=== PATIENT | female | born 1975 | race Caucasian/White ===

== ENCOUNTER 2016-07-16 14:12 | Emergency (ER) | payer OTHER ==
--- NOTE | 2016-07-16 14:43 | EDDOCDS ---
Nurse's Notes [facility] Name: Faviola Romano Age: 40 yrs Sex: Female : 1975 Arrival Date: 07/16/2016 Time: 14:12 Bed Triage 3 Private MD: NO PRIMARY PHYSICIAN, . Diagnosis: Constipation Presentation: 07/16 14:17 Presenting complaint: Patient states: Bilateral anterior chest wall pain intermittent mlb1 "for over a year" this episode began a few days ago. Risk factors: the patient reports no vaginal bleeding. Adult Sepsis Screening: The patient does not have new or worsening altered mentation. Patient's respiratory rate is less than 22. Systolic blood pressure is greater than 100. Patient has a qSOFA score of 0- Negative Sepsis Screen. Suicide/Homicide risk assessment- the patient denies having any suicidal and/or homicidal ideations and does not present with any other emotional, behavioral or mental health complaints. 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 Transition of care: patient was not received from another setting of care. 14:17 Acuity: NIYA Level 3 mlb1 14:17 Method Of Arrival: Walkin/Carried/Asstd mlb1 Triage Assessment: 14:19 General: Appears in no apparent distress, Behavior is appropriate for age, cooperative. mlb1 Pain: Location: left lateral anterior chest and right lateral anterior chest Pain currently is 6 out of 10 on a pain scale. Pt Declines HIV testing. 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 none - PMHx: none; - PSHx: ; - Social history: Smoking status: Patient uses tobacco products, light tobacco smoker. No barriers to communication noted, The patient speaks fluent Palestinian, Speaks appropriately for age. - Family history: Not pertinent. - : The pt / caregiver states he / she is not on anticoagulants. Home medication list is obtained from the patient. - Exposure Risk Screening:: None identified. Screenin:41 Screening information is obtained from the patient. Fall risk: No risks identified. mlb1 Assistance ADL's: requires no assistance with activities of daily living. Abuse/DV Screen: The patient / caregiver reports he/she is: not in a situation that causes fear, pain or injury. Nutritional screening: No deficits noted. Advance Directives: Currently, there is no health care proxy. home support is adequate. Assessment: 14:41 General: Appears in no apparent distress, Behavior is appropriate for age, cooperative. mlb1 Pain: Location: right lateral anterior chest and left lateral anterior chest Pain currently is 4 out of 10 on a pain scale. GI: Abdomen is non- distended Bowel sounds present X 4 quads. Abd is soft and non tender X 4 quads. Derm: No deficits noted. Vital Signs: 14:14 BP 126 / 60; Pulse 77; Resp 18 S; Temp 96.4(O); Pulse Ox 100% on R/A; Weight 94.35 kg gr2 (R); Height 5 ft. 8 in. (172.72 cm) (R); Pain 6/10; 14:14 Body Mass Index 31.63 (94.35 kg, 172.72 cm) gr2 Vitals: 14:14 Log In Time: July 16, 2016 at 14:14. gr2 ED Course: 14:14 Patient visited by Sylvain Gonzalez. gr2 14:14 NO PRIMARY PHYSICIAN, . is Private Physician. gr2 14:14 Patient moved to Waiting gr2 14:15 Patient visited by Sylvain Gonzalez. gr2 14:15 Patient moved to Pre RCE gr2 14:18 Triage Initiated mlb1 14:19 Patient visited by Ryne Mc RN. mlb1 14:19 Patient moved to Triage 3 mlb1 14:22 [facility] cc[facility] 14:22 Shama Graham MD is Attending Physician. cc10 14:23 Patient visited by Anthony Castaneda PA-C. cc10 14:23 Patient visited by Anthony Castaneda PA-C. cc10 14:28 [facility] is Referral Physician. cc10 14:41 No IV's were initiated during this patient's visit. No procedures done that require mlb1 assistance. 14:42 The patient / caregiver is instructed regarding the plan of care and ED course. mlb1 Order Results: There are currently no results for this order. Outcome: 14:29 Discharge ordered by Provider. cc10 14:41 Discharge Assessment: Patient awake, alert and oriented x 3. No cognitive and/or mlb1 functional deficits noted. Patient verbalized understanding of disposition instructions. patient administered narcotics - no. The following High Risk Discharge criteria are identified: None. Discharged to home ambulatory. Condition: good. Discharge instructions given to patient, Instructed on discharge instructions, follow up and referral plans. medication usage, Demonstrated understanding of instructions, medications, Pt was receptive of discharge instructions/ teaching. Prescriptions given X 1. No special radiology studies were completed. Property sent home with patient. 14:42 Patient left the ED. mlb1 Signatures: Ryne Mc RN RN mlb1 Sylvain Gonzalez gr2 Anthony Castaneda PA-C PA-C cc10 MTDD
--- NOTE | 2016-07-16 14:43 | EDDOCDS ---
Physician Documentation [facility] Name: Faviola Romano Age: 40 yrs Sex: Female : 1975 Arrival Date: 07/16/2016 Time: 14:12 Bed Triage 3 Private MD: NO PRIMARY PHYSICIAN, . Disposition: 07/16/16 14:29 Discharged to Home/Self Care. Impression: Constipation. - Condition is Stable. - Discharge Instructions: Constipation, Adult. - Prescriptions for Magnesium Citrate Oral Solution - take 1 bottle by ORAL route once daily; 1 bottle. - Medication Reconciliation form. - [facility]: [facility]; When: Call to arrange an appointment; Reason: To establish care. - Problem is chronic. - Symptoms are unchanged. Historical: - Allergies: SULFA (SULFONAMIDES) (Anaphylaxis); - Home Meds: 1. none - PMHx: none; - PSHx: ; - Social history: Smoking status: Patient uses tobacco products, light tobacco smoker. No barriers to communication noted, The patient speaks fluent Icelandic, Speaks appropriately for age. - Family history: Not pertinent. - : The pt / caregiver states he / she is not on anticoagulants. Home medication list is obtained from the patient. - Exposure Risk Screening:: None identified. 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 8 in. (172.72 cm) (R); Pain 6/10; 14:14 Body Mass Index 31.63 (94.35 kg, 172.72 cm) gr2 Signatures: Ryne Mc RN RN mlb1 Anthony Castaneda PA-C PAFahadC cc10 MTDD
--- NOTE | 2016-07-18 15:43 | EDDOCDS ---
Nurse's Notes [facility] Name: Faviola Romano Age: 40 yrs Sex: Female : 1975 Arrival Date: 07/16/2016 Time: 14:12 Bed Triage 3 Private MD: NO PRIMARY PHYSICIAN, . Diagnosis: Constipation Presentation: 07/16 14:17 Presenting complaint: Patient states: Bilateral anterior chest wall pain intermittent mlb1 "for over a year" this episode began a few days ago. Risk factors: the patient reports no vaginal bleeding. Adult Sepsis Screening: The patient does not have new or worsening altered mentation. Patient's respiratory rate is less than 22. Systolic blood pressure is greater than 100. Patient has a qSOFA score of 0- Negative Sepsis Screen. Suicide/Homicide risk assessment- the patient denies having any suicidal and/or homicidal ideations and does not present with any other emotional, behavioral or mental health complaints. Status: Patient is not a service dismantler or dependent. Transition of care: patient was not received from another setting of care. 14:17 Acuity: NIYA Level 3 mlb1 14:17 Method Of Arrival: Walkin/Carried/Asstd mlb1 Triage Assessment: 14:19 General: Appears in no apparent distress, Behavior is appropriate for age, cooperative. mlb1 Pain: Location: left lateral anterior chest and right lateral anterior chest Pain currently is 6 out of 10 on a pain scale. Pt Declines HIV testing. 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 none - PMHx: none; - PSHx: ; - Social history: Smoking status: Patient uses tobacco products, light tobacco smoker. No barriers to communication noted, The patient speaks fluent Costa Rican, Speaks appropriately for age. - Family history: Not pertinent. - : The pt / caregiver states he / she is not on anticoagulants. Home medication list is obtained from the patient. - Exposure Risk Screening:: None identified. Screenin:41 Screening information is obtained from the patient. Fall risk: No risks identified. mlb1 Assistance ADL's: requires no assistance with activities of daily living. Abuse/DV Screen: The patient / caregiver reports he/she is: not in a situation that causes fear, pain or injury. Nutritional screening: No deficits noted. Advance Directives: Currently, there is no health care proxy. home support is adequate. Assessment: 14:41 General: Appears in no apparent distress, Behavior is appropriate for age, cooperative. mlb1 Pain: Location: right lateral anterior chest and left lateral anterior chest Pain currently is 4 out of 10 on a pain scale. GI: Abdomen is non- distended Bowel sounds present X 4 quads. Abd is soft and non tender X 4 quads. Derm: No deficits noted. Vital Signs: 14:14 BP 126 / 60; Pulse 77; Resp 18 S; Temp 96.4(O); Pulse Ox 100% on R/A; Weight 94.35 kg gr2 (R); Height 5 ft. 8 in. (172.72 cm) (R); Pain 6/10; 14:14 Body Mass Index 31.63 (94.35 kg, 172.72 cm) gr2 Vitals: 14:14 Log In Time: July 16, 2016 at 14:14. gr2 ED Course: 14:14 Patient visited by Sylvain Gonzalez. gr2 14:14 NO PRIMARY PHYSICIAN, . is Private Physician. gr2 14:14 Patient moved to Waiting gr2 14:15 Patient visited by Sylvain Gonzalez. gr2 14:15 Patient moved to Pre RCE gr2 14:18 Triage Initiated mlb1 14:19 Patient visited by Ryne Mc RN. mlb1 14:19 Patient moved to Triage 3 mlb1 14:22 [facility] cc10 14:22 Shama Graham MD is Attending Physician. cc10 14:23 Patient visited by Anthony Castaneda PA-C. cc10 14:23 Patient visited by Anthony Castaneda PA-C. cc10 14:28 [facility] is Referral Physician. cc10 14:41 No IV's were initiated during this patient's visit. No procedures done that require mlb1 assistance. 14:42 The patient / caregiver is instructed regarding the plan of care and ED course. mlb1 15:24 [facility] Payment Agreement was scanned into [employer] and attached to record. jp5 07/17 11:15 T-Sheet-- Draft Copy was scanned into [employer] and attached to record. gb Order Results: There are currently no results for this order. Outcome: 07/16 14:29 Discharge ordered by Provider. cc10 14:41 Discharge Assessment: Patient awake, alert and oriented x 3. No cognitive and/or mlb1 functional deficits noted. Patient verbalized understanding of disposition instructions. patient administered narcotics - no. The following High Risk Discharge criteria are identified: None. Discharged to home ambulatory. Condition: good. Discharge instructions given to patient, Instructed on discharge instructions, follow up and referral plans. medication usage, Demonstrated understanding of instructions, medications, Pt was receptive of discharge instructions/ teaching. Prescriptions given X 1. No special radiology studies were completed. Property sent home with patient. 14:42 Patient left the ED. mlb1 Signatures: Adina Agee, Reg Reg Ryne Schneider RN RN mlb1 Sylvain Gonzalez gr2 Anthony Castaneda PA-C PALavonne cc10 Brody Lawrence jp5 Chart Complete MTDD
--- NOTE | 2016-07-18 15:43 | EDDOCDS ---
Physician Documentation [facility] Name: Faviola Romano Age: 40 yrs Sex: Female : 1975 Arrival Date: 07/16/2016 Time: 14:12 Bed Triage 3 Private MD: NO PRIMARY PHYSICIAN, . Disposition: 07/16/16 14:29 Discharged to Home/Self Care. Impression: Constipation. - Condition is Stable. - Discharge Instructions: Constipation, Adult. - Prescriptions for Magnesium Citrate Oral Solution - take 1 bottle by ORAL route once daily; 1 bottle. - Medication Reconciliation form. - Follow up: [facility]; When: Call to arrange an appointment; Reason: To establish care. - Problem is chronic. - Symptoms are unchanged. Historical: - Allergies: SULFA (SULFONAMIDES) (Anaphylaxis); - Home Meds: 1. none - PMHx: none; - PSHx: ; - Social history: Smoking status: Patient uses tobacco products, light tobacco smoker. No barriers to communication noted, The patient speaks fluent Persian, Speaks appropriately for age. - Family history: Not pertinent. - : The pt / caregiver states he / she is not on anticoagulants. Home medication list is obtained from the patient. - Exposure Risk Screening:: None identified. 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 8 in. (172.72 cm) (R); Pain 6/10; 14:14 Body Mass Index 31.63 (94.35 kg, 172.72 cm) gr2 MDM: 15:24 [facility] Payment Agreement was scanned into [employer] and attached to record. jp5 15:24 Financial registration complete. jp5 07/17 11:15 T-Sheet-- Draft Copy was scanned into [employer] and attached to record. gb Signatures: Adina Agee, Reg Reg gb Ryne Mc RN RN mlb1 Anthony Castaneda, PA-C PA-C cc10 Brody Lawrence 5 The chart was reviewed and I authenticate all verbal orders and agree with the evaluation and treatment provided.Attachments: 07/16 15:24 [facility] Payment Agreement jp5 07/17 11:15 T-Sheet-- Draft Copy gb Chart Complete MTDD
--- NOTE | 2016-07-18 15:43 | EDDOCDS ---
Physician Documentation [facility] Name: Faviola Romano Age: 40 yrs Sex: Female : 1975 Arrival Date: 07/16/2016 Time: 14:12 Bed Triage 3 Private MD: NO PRIMARY PHYSICIAN, . Disposition: 07/16/16 14:29 Discharged to Home/Self Care. Impression: Constipation. - Condition is Stable. - Discharge Instructions: Constipation, Adult. - Prescriptions for Magnesium Citrate Oral Solution - take 1 bottle by ORAL route once daily; 1 bottle. - Medication Reconciliation form. - Follow up: [facility]; When: Call to arrange an appointment; Reason: To establish care. - Problem is chronic. - Symptoms are unchanged. Historical: - Allergies: SULFA (SULFONAMIDES) (Anaphylaxis); - Home Meds: 1. none - PMHx: none; - PSHx: ; - Social history: Smoking status: Patient uses tobacco products, light tobacco smoker. No barriers to communication noted, The patient speaks fluent Setswana, Speaks appropriately for age. - Family history: Not pertinent. - : The pt / caregiver states he / she is not on anticoagulants. Home medication list is obtained from the patient. - Exposure Risk Screening:: None identified. 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 8 in. (172.72 cm) (R); Pain 6/10; 14:14 Body Mass Index 31.63 (94.35 kg, 172.72 cm) gr2 MDM: 15:24 [facility] Payment Agreement was scanned into [employer] and attached to record. jp5 15:24 Financial registration complete. jp5 07/17 11:15 T-Sheet-- Draft Copy was scanned into [employer] and attached to record. gb Signatures: Adina Agee, Reg Reg gb Ryne Mc RN RN mlb1 Anthony Castaneda, PA-C PA-C cc10 Brody Lawrence 5 The chart was reviewed and I authenticate all verbal orders and agree with the evaluation and treatment provided.Attachments: 07/16 15:24 [email or web address] Payment Agreement jp5 07/17 11:15 T-Sheet-- Draft Copy gb Chart Complete MTDD
== END 2016-07-16 14:42 | disposition home or self-care (01) ==
LOC: M ED 14:12
DX: K59.00 Constipation, unspecified (principal); F17.210 Nicotine dependence, cigarettes, uncomplicated; Z88.2 Allergy status to sulfonamides

== ENCOUNTER 2018-11-29 10:59 | Emergency (ER) | payer OTHER ==
[~2018-11-29] VITALS: Ht 172.7 cm; Wt 77.6 kg
[2018-11-29 12:01] LABS: BASO # 0.1 10^3/uL (0.0-0.2); BASO % 0.8 % (0.0-1.0); EOS # 0.1 10^3/uL (0.0-0.50); EOS % 1.3 % (0.0-3.0); HEMATOCRIT 34.8 % (36.0-47.0); HEMOGLOBIN 10.1 g/dl (12.0-15.5); LYMPH # 1.6 10^3/uL (1.5-4.5); LYMPH % 20.6 % (24.0-44.0); MEAN CORPUSCULAR HEMOGLOBIN 22.9 pg (27.0-33.0); MEAN CORPUSCULAR VOLUME 78.9 fl (80.0-96.0); MONO # 0.6 10^3/uL (0.0-0.8); MONO % 7.1 % (0.0-5.0); NEUTROPHILS # 5.5 10^3/uL (1.8-7.7); NEUTROPHILS % 69.8 % (36.0-66.0); PLATELET COUNT, AUTOMATED 311 10^3/uL (150-450); RED BLOOD COUNT 4.41 10^6/uL (4.00-5.40); WHITE BLOOD COUNT 7.8 10^3/uL (4.0-10.0)
[2018-11-29] MEDS ORDERED: NS 1,000 ML IV ONE (12:15)
[2018-11-29] MEDS ORDERED: KETOROLAC 30 MG/ML VIAL (J1885) IV ONE (12:15)
[2018-11-29] MEDS ORDERED: PANTOPRAZOLE 40MG INJ (PROTONIX) (C9113) IV ONE (12:15)
[2018-11-29] MEDS ORDERED: ONDANSETRON 4MG/2ML VIAL (J2405) IV ONE (12:15)
[2018-11-29] MEDS ORDERED: GASTROGRAFIN SOLUTION 30ML (Q9963) As Ordered ONE (12:31)
[2018-11-29 12:43] LABS: ALBUMIN 3.8 GM/DL (3.2-5.2); ALT/SGPT 22 U/L (12-78); AMYLASE 70 U/L (25-115); BILIRUBIN,DIRECT 0.1 MG/DL (0.0-0.2); BILIRUBIN,TOTAL 0.5 MG/DL (0.2-1.0); BLOOD UREA NITROGEN 14 MG/DL (7-18); CARBON DIOXIDE LEVEL 24 MEQ/L (21-32); CHLORIDE LEVEL 110 MEQ/L (98-107); CREATININE FOR GFR 0.76 MG/DL (0.55-1.30); GLOMERULAR FILTRATION RATE > 60.0 (>58); GLUCOSE, FASTING 80 MG/DL (70-100); LIPASE 139 U/L (73-393); POTASSIUM SERUM 4.7 MEQ/L (3.5-5.1); SODIUM LEVEL 140 MEQ/L (136-145)
[2018-11-29] MEDS: GASTROGRAFIN SOLUTION 30ML PO SCH ×2 (12:57→13:45)
[2018-11-29 13:02] LABS: INR 0.94; PROTHROMBIN TIME 12.7 SECONDS (12.1-14.4)
[2018-11-29] MEDS ORDERED: ISOVUE-370 76% 100ML VIAL (Q9967) As Ordered ONE (14:36)
--- NOTE | 2018-11-29 15:44 | REP ---
CT ABDOMEN AND PELVIS WITH IV AND ORAL CONTRAST: TECHNIQUE: Axial contrast enhanced images from the lung bases to the pubic symphysis using 100 mL Isovue 370 intravenous contrast material with multiplanar reformations. Visualized lung bases are clear. The liver, spleen, adrenals, pancreas and kidneys are unremarkable. There is no hydronephrosis bilaterally. There is no abdominal aortic aneurysm. There is no adenopathy. There is no free air. No bowel wall thickening is seen. The appendix is normal. Left ovarian cyst is seen measuring 4.2 cm in diameter. There is trace free fluid in the cul-de-sac. IUD is seen located in the cervix. Urinary bladder is not optimally distended and not optimally evaluated. IMPRESSION: Left ovarian cyst 4.2 cm in diameter. Trace free fluid in the pelvis. IUD is seen in the cervix. Appendix is normal. No free air. Electronically Signed by Rojas Wallis MD 12/01/2018 08:40 A
[2018-11-29] MEDS ORDERED: FAMO20TA PO (15:58)
[2018-11-29] MEDS ORDERED: NORC1TAB7 PO (15:58)
[2018-11-29] MEDS ORDERED: ZOFR4TAB16 PO (15:58)
[2018-11-29 16:28] VITALS: BP 109/57
== END 2018-11-29 16:36 | disposition home or self-care (01) ==
LOC: M ED 10:59
DX: N83.201 Unspecified ovarian cyst, right side (principal); F17.200 Nicotine dependence, unspecified, uncomplicated; Z88.2 Allergy status to sulfonamides
CPT/HCPCS: 74177; 80048; 80076; 82150; 83690; 85025; 85610; 96361; 96374; 96375; 99284; C9113; J1885; J2405; Q9967

== ENCOUNTER 2018-12-06 17:16 | Emergency (ER) | payer OTHER ==
[~2018-12-06] VITALS: Ht 172.7 cm; Wt 83.2 kg
[~2018-12-06 17:16] MED LIST: FAMO20TA PO; NORC1TAB7 PO; ZOFR4TAB16 PO
[2018-12-06] MEDS ORDERED: ACET160S3 PO (17:23)
[2018-12-06] MEDS ORDERED: NS 1,000 ML IV ONE (18:30)
[2018-12-06 18:50] LABS: BASO # 0.1 10^3/uL (0.0-0.2); BASO % 0.7 % (0.0-1.0); EOS # 0.1 10^3/uL (0.0-0.50); EOS % 0.9 % (0.0-3.0); HEMATOCRIT 32.2 % (36.0-47.0); HEMOGLOBIN 9.4 g/dl (12.0-15.5); LYMPH # 1.8 10^3/uL (1.5-4.5); LYMPH % 24.2 % (24.0-44.0); MEAN CORPUSCULAR HGB CONC 29.2 g/dl (32.0-36.5); MEAN CORPUSCULAR VOLUME 78.9 fl (80.0-96.0); MONO # 0.5 10^3/uL (0.0-0.8); MONO % 6.8 % (0.0-5.0); NEUTROPHILS # 5.1 10^3/uL (1.8-7.7); NEUTROPHILS % 67.1 % (36.0-66.0); PLATELET COUNT, AUTOMATED 290 10^3/uL (150-450); RED BLOOD COUNT 4.08 10^6/uL (4.00-5.40); WHITE BLOOD COUNT 7.5 10^3/uL (4.0-10.0)
[2018-12-06 19:17] LABS: HCG, SERUM QUALITATIVE NEGATIVE (NEGATIVE)
[2018-12-06 19:18] LABS: ALBUMIN 3.7 GM/DL (3.2-5.2); ALT/SGPT 37 U/L (12-78); BILIRUBIN,DIRECT 0.1 MG/DL (0.0-0.2); BILIRUBIN,TOTAL 0.3 MG/DL (0.2-1.0); BLOOD UREA NITROGEN 12 MG/DL (7-18); CALCIUM LEVEL 8.9 MG/DL (8.5-10.1); CARBON DIOXIDE LEVEL 29 MEQ/L (21-32); CHLORIDE LEVEL 110 MEQ/L (98-107); CREATININE FOR GFR 0.76 MG/DL (0.55-1.30); GLOMERULAR FILTRATION RATE > 60.0 (>58); GLUCOSE, FASTING 77 MG/DL (70-100); LIPASE 116 U/L (73-393); POTASSIUM SERUM 4.1 MEQ/L (3.5-5.1); SODIUM LEVEL 142 MEQ/L (136-145); TOTAL PROTEIN 6.9 GM/DL (6.4-8.2)
--- NOTE | 2018-12-06 19:34 | REPVR ---
EXAM: US Pelvis Complete, Transabdominal and US Pelvis, Transvaginal EXAM DATE/TIME: 12/06/2018 6:56 PM CLINICAL HISTORY: 43 years old, female; Pelvic pain; Additional info: Llq pain, h/o L ovarian cyst TECHNIQUE: Imaging protocol: Real-time transabdominal and transvaginal pelvic ultrasound (complete) with image documentation. Transvaginal imaging was used for better evaluation of the endometrium and adnexa. COMPARISON: US PELVIC NON OB COMPLETE 04/20/2013 2:20 PM FINDINGS: Uterus/cervix: Uterus measures 9.6 x 4.8 x 5.0 cm. Endometrial echocomplex measures 8.1 mm. Findings consistent with late proliferative phase endometrium. IUD demonstrated in the cervix. Right adnexa: Right ovary measures 2.9 x 1.6 x 1.3 cm. Resistive index 0.63. Normal flow. Left adnexa: Left ovary measures 4.6 x 3.7 x 3.3 cm. Complex cyst in the left ovary measures 3.8 x 2.0 x 3.5 cm. Appearance most consistent with a hemorrhagic cyst. This resistive index 0.38. Normal flow. Free fluid: None. Bladder: Normal. IMPRESSION: IUD located within the cervix. Probable hemorrhagic cyst in the left ovary. No evidence of ovarian torsion. Electronically signed by: Tomasz Peace On 12/06/2018 19:34:48 PM
[2018-12-06 20:26] VITALS: BP 113/58
== END 2018-12-06 20:40 | disposition home or self-care (01) ==
LOC: M ED 17:16
DX: N83.202 Unspecified ovarian cyst, left side (principal); Z97.5 Presence of (intrauterine) contraceptive device; K21.9 Gastro-esophageal reflux disease without esophagitis; R51 Headache; F17.210 Nicotine dependence, cigarettes, uncomplicated; Z88.2 Allergy status to sulfonamides; Z79.899 Other long term (current) drug therapy

== ENCOUNTER 2020-01-05 11:42 | Emergency (ER) | payer OTHER ==
[~2020-01-05] VITALS: Ht 172.7 cm; Wt 87.4 kg
[~2020-01-05 11:42] MED LIST changes: +ACET160S3 PO
[2020-01-05] MEDS ORDERED: [UNRECOGNIZED DRUG - OTHER] (12:16)
[2020-01-05] MEDS ORDERED: MAPA500C PO (12:16)
[2020-01-05] MEDS ORDERED: ALBU8.5H INH (12:16)
[2020-01-05] MEDS ORDERED: NS 1,000 ML IV ONE (12:45)
[2020-01-05] MEDS ORDERED: METOCLOPRAMIDE INJ 10MG/2ML VIAL (J2765 PER 1) IV ONE (12:45)
[2020-01-05] MEDS ORDERED: diphenhydrAMINE 50MG/ML VIAL (J1200) IV ONE (12:45)
[2020-01-05] MEDS ORDERED: KETOROLAC 30 MG/ML 1ML VIAL IV ONE (12:45)
[2020-01-05 13:00] LABS: BASO # 0.1 10^3/uL (0.0-0.2); BASO % 0.9 % (0.0-1.0); EOS # 0.2 10^3/uL (0.0-0.5); HEMOGLOBIN 10.8 g/dl (12.0-15.5); LYMPH # 1.6 10^3/uL (1.5-5.0); LYMPH % 21.1 % (24.0-44.0); MEAN CORPUSCULAR HGB CONC 29.2 g/dl (32.0-36.5); MEAN CORPUSCULAR VOLUME 78.7 fl (80.0-96.0); MONO # 0.5 10^3/uL (0.0-0.8); MONO % 6.1 % (0.0-5.0); NEUTROPHILS # 5.1 10^3/uL (1.5-8.5); NEUTROPHILS % 68.5 % (36.0-66.0); PLATELET COUNT, AUTOMATED 352 10^3/uL (150-450); WHITE BLOOD COUNT 7.4 10^3/uL (4.0-10.0)
[2020-01-05 13:11] LABS: INR 0.93; PROTHROMBIN TIME 12.2 SECONDS (11.8-14.0)
[2020-01-05 13:12] LABS: PARTIAL THROMBOPLASTIN TIME 24.1 SECONDS (25.0-38.4)
[2020-01-05] MEDS ORDERED: ISOVUE-370 76% 100ML VIAL As Ordered ONE (13:13)
[2020-01-05 13:34] LABS: ERYTHROCYTE SEDIMENTATION RATE 31 mm/hr (0-20)
--- NOTE | 2020-01-05 15:02 | REPVR ---
PROCEDURE INFORMATION: Exam: MR Angiogram Head Without Contrast, Arteries Exam date and time: 01/05/2020 2:51 PM Age: 44 years old Clinical indication: Other: Severe headache following intercourse, RO aneurysm; Additional info: Severe headache following intersourse, RO aneurysm TECHNIQUE: Imaging protocol: MR angiogram head without contrast. Exam focused on the arteries. 3D rendering: MIP and/or 3D reconstructed images were created by the technologist. COMPARISON: CT Head W/O FOLL BY WITH CONTR 01/05/2020 1:26 PM FINDINGS: Anterior cerebral arteries: Intracranial segment is patent with no significant stenosis. No aneurysm. Right internal carotid artery: Intracranial segment is patent with no significant stenosis. No aneurysm. Right middle cerebral artery: No occlusion or significant stenosis. No aneurysm. Right posterior cerebral artery: No occlusion or significant stenosis. No aneurysm. Right vertebral artery: No occlusion or significant stenosis. No aneurysm. Left internal carotid artery: Intracranial segment is patent with no significant stenosis. No aneurysm. Left middle cerebral artery: No occlusion or significant stenosis. No aneurysm. Left posterior cerebral artery: No occlusion or significant stenosis. No aneurysm. Left vertebral artery: No occlusion or significant stenosis. No aneurysm. Basilar artery: No occlusion or significant stenosis. No aneurysm. IMPRESSION: No stenosis.No occlusion. No aneurysm. Electronically signed by: Dylan Frederick On 01/05/2020 15:02:22 PM
[2020-01-05 16:18] VITALS: BP 116/58
--- NOTE | 2020-01-06 07:43 | REP ---
CT BRAIN WITHOUT AND WITHOUT CONTRAST: REASON FOR EXAM: Severe headache. Exam was performed before and after the administration of intravenous contrast. CT is insensitive in detecting cerebral aneurysms compared to MRA or CTA. CONTRAST: 75 mL Isovue-370. COMPARISONS: No priors. TECHNIQUE: 4.5 mm contiguous transaxial sections were obtained from the skull base to the cerebral convexities with thin cuts through the posterior fossa with and without the administration of intravenous contrast. FINDINGS: The ventricles and sulci are consistent with the patient's age. There are no extra-axial fluid collections. There is no mass effect on the on-contrast scan and there are no enhancing mass lesions on the post-contrast scan. The deep cerebral white mater is consistent with the patient's age. The orbital and petrous structures, cerebellopontine angles and posterior fossa are unremarkable. The sella turcica, cavernous and paracavernous structures are essentially unremarkable. The visualized portions of the paranasal sinuses and mastoid air cells are clear. IMPRESSION: Essentially unremarkable CT examination of the brain. A cerebral aneurysm cannot be ruled out by this exam. MRA is recommended for followup. If the patient is compatible with MRI, then a CTA would be in order. Electronically Signed by Simone Hall DO 01/07/2020 08:27 A
== END 2020-01-05 16:20 | disposition home or self-care (01) ==
LOC: M ED 11:42
DX: G43.909 Migraine, unspecified, not intractable, without status migrainosus (principal); J45.909 Unspecified asthma, uncomplicated; K21.9 Gastro-esophageal reflux disease without esophagitis; Z72.0 Tobacco use
CPT/HCPCS: 70470; 70544; 80047; 84702; 85025; 85610; 85652; 85730; 86140; 96361; 96374; 96375; 99284; J1200; J1885; J2765; Q9967

== ENCOUNTER 2021-02-25 12:55 | Emergency (ER) | payer OTHER ==
[~2021-02-25] VITALS: Ht 172.7 cm; Wt 83.2 kg
[~2021-02-25 12:55] MED LIST changes: +ALBU8.5H INH; +MAPA500C PO; +[UNRECOGNIZED DRUG - OTHER]
[2021-02-25 13:19] VITALS: BP 145/65
[2021-02-25 14:15] LABS: HEMATOCRIT 37.1 % (36.0-47.0); HEMOGLOBIN 11.1 g/dl (12.0-15.5); MEAN CORPUSCULAR HEMOGLOBIN 23.3 pg (27.0-33.0); MEAN CORPUSCULAR HGB CONC 29.9 g/dl (32.0-36.5); MEAN CORPUSCULAR VOLUME 77.9 fl (80.0-96.0); PLATELET COUNT, AUTOMATED 339 10^3/uL (150-450); RED BLOOD COUNT 4.76 10^6/uL (4.00-5.40); WHITE BLOOD COUNT 14.1 10^3/uL (4.0-10.0)
[2021-02-25 14:40] LABS: BLOOD UREA NITROGEN 11 MG/DL (7-18); CALCIUM LEVEL 9.3 MG/DL (8.5-10.1); CARBON DIOXIDE LEVEL 20 MEQ/L (21-32); CHLORIDE LEVEL 108 MEQ/L (98-107); CREATININE FOR GFR 0.78 MG/DL (0.55-1.30); GLOMERULAR FILTRATION RATE > 60.0 (>58); GLUCOSE, FASTING 71 MG/DL (70-100); POTASSIUM SERUM 3.7 MEQ/L (3.5-5.1); SODIUM LEVEL 137 MEQ/L (136-145)
== END 2021-02-25 15:59 | disposition home or self-care (01) ==
LOC: M ED 12:55
DX: F41.9 Anxiety disorder, unspecified (principal); K21.9 Gastro-esophageal reflux disease without esophagitis; F10.10 Alcohol abuse, uncomplicated; F32.9 Major depressive disorder, single episode, unspecified; Z79.899 Other long term (current) drug therapy; Z88.2 Allergy status to sulfonamides

== ENCOUNTER → 2021-06-23 | Outpatient (REF) | payer OTHER | LOC: M LAB REF 16:07 | PROVIDERS: ATTEND Physician Assistant Medical | DX: R50.9 Fever, unspecified (principal) ==

== ENCOUNTER 2021-11-16 09:23 | Emergency (ER) | payer OTHER ==
[~2021-11-16] VITALS: Ht 172.7 cm; Wt 75.3 kg
[2021-11-16 09:23] VITALS: BP 119/66
[2021-11-16] MEDS ORDERED: BENA25CA4 PO ×2 (09:28→09:29)
[2021-11-16] MEDS ORDERED: HYDR25OIN TOP (09:46)
[2021-11-16] MEDS ORDERED: CLAR10CA3 PO (09:46)
== END 2021-11-16 09:58 | disposition home or self-care (01) ==
LOC: M ED 09:23
DX: R21 Rash and other nonspecific skin eruption (principal); J45.909 Unspecified asthma, uncomplicated; F41.9 Anxiety disorder, unspecified; F17.200 Nicotine dependence, unspecified, uncomplicated; F12.10 Cannabis abuse, uncomplicated; Z79.899 Other long term (current) drug therapy; Z79.1 Long term (current) use of non-steroidal anti-inflammatories (NSAID); Z88.2 Allergy status to sulfonamides

== ENCOUNTER 2022-05-04 15:42 | Emergency (ER) | payer OTHER ==
[~2022-05-04] VITALS: Ht 172.7 cm; Wt 78.1 kg
[~2022-05-04 15:42] MED LIST changes: +BENA25CA4 PO; +CLAR10CA3 PO; +HYDR25OIN TOP
[2022-05-04] MEDS ORDERED: ONDANSETRON 4MG 2ML VIAL IV ONE (20:05)
[2022-05-04] MEDS ORDERED: NS 1,000 ML IV ONE (20:05)
[2022-05-04] MEDS ORDERED: KETOROLAC 30 MG/ML 1ML VIAL IV ONE (20:05)
[2022-05-04 20:39] LABS: BASO # 0.1 10^3/uL (0.0-0.2); BASO % 0.6 % (0.0-1.0); EOS # 0.1 10^3/uL (0.0-0.5); EOS % 1.2 % (0.0-3.0); HEMATOCRIT 35.5 % (36.0-47.0); HEMOGLOBIN 10.3 g/dl (12.0-15.5); LYMPH # 2.9 10^3/uL (1.5-5.0); LYMPH % 29.4 % (24.0-44.0); MEAN CORPUSCULAR HEMOGLOBIN 22.8 pg (27.0-33.0); MEAN CORPUSCULAR VOLUME 78.5 fl (80.0-96.0); MONO # 0.6 10^3/uL (0.0-0.8); MONO % 6.3 % (2.0-8.0); NEUTROPHILS # 6.1 10^3/uL (1.5-8.5); NEUTROPHILS % 62.2 % (36.0-66.0); PLATELET COUNT, AUTOMATED 396 10^3/uL (150-450); RED BLOOD COUNT 4.52 10^6/uL (4.00-5.40); WHITE BLOOD COUNT 9.8 10^3/uL (4.0-10.0)
[2022-05-04] MEDS ORDERED: ISOVUE-370 76% 100ML VIAL As Ordered ONE (20:54)
[2022-05-04 21:01] LABS: ERYTHROCYTE SEDIMENTATION RATE 19 mm/hr (0-20)
[2022-05-04 21:21] LABS: RSV AMPLIFICATION NEGATIVE (NEGATIVE)
[2022-05-04 21:23] LABS: ALBUMIN 3.7 GM/DL (3.2-5.2); ALT/SGPT 26 U/L (12-78); BILIRUBIN,DIRECT < 0.1 MG/DL (0.0-0.2); BILIRUBIN,TOTAL 0.3 MG/DL (0.2-1.0); C REACTIVE PROTEIN QUANTITATIV 0.52 MG/DL (0.00-0.30); LIPASE 129 U/L (73-393); TOTAL PROTEIN 6.9 GM/DL (6.4-8.2)
[2022-05-04 21:33] LABS: MONO SCRN NEGATIVE (NEGATIVE)
[2022-05-04] MEDS ORDERED: ONDA4TAB6 PO (22:49)
[2022-05-04 22:52] VITALS: BP 121/55
== END 2022-05-04 22:54 | disposition home or self-care (01) ==
LOC: M ED 15:42
DX: A08.4 Viral intestinal infection, unspecified (principal); R51.9 Headache, unspecified; J45.909 Unspecified asthma, uncomplicated; K21.9 Gastro-esophageal reflux disease without esophagitis; F41.9 Anxiety disorder, unspecified; Z88.2 Allergy status to sulfonamides; F17.210 Nicotine dependence, cigarettes, uncomplicated; Z79.899 Other long term (current) drug therapy
CPT/HCPCS: 71046; 74177; 80047; 80076; 81000; 83690; 84702; 85025; 85652; 86140; 86308; 87631; 96361; 96374; 96375; 99284; J1885; J2405

== ENCOUNTER 2024-01-20 16:42 | Emergency (ER) | payer OTHER, SELFPAY ==
[~2024-01-20] VITALS: Ht 172.7 cm; Wt 67.7 kg
[~2024-01-20 16:42] MED LIST changes: +ONDA-282 PO
[2024-01-20 17:12] VITALS: TEMP 97.6
[2024-01-20] MEDS: LIDOCAINE 2% 5ML JELLY UROJET TOP ONE (17:15)
[2024-01-20 17:52] LABS: BASO # 0.1 10^3/uL (0.0-0.2); BASO % 0.8 % (0.0-1.0); EOS # 0.1 10^3/uL (0.0-0.5); HEMATOCRIT 31.5 % (36.0-47.0); HEMOGLOBIN 9.3 g/dl (12.0-15.5); LYMPH # 1.8 10^3/uL (1.5-5.0); LYMPH % 27.7 % (24.0-44.0); MEAN CORPUSCULAR HEMOGLOBIN 22.4 pg (27.0-33.0); MEAN CORPUSCULAR HGB CONC 29.5 g/dl (32.0-36.5); MEAN CORPUSCULAR VOLUME 75.7 fl (80.0-96.0); MONO # 0.5 10^3/uL (0.0-0.8); MONO % 7.9 % (2.0-8.0); NEUTROPHILS # 3.9 10^3/uL (1.5-8.5); NEUTROPHILS % 61.1 % (36.0-66.0); PLATELET COUNT, AUTOMATED 368 10^3/uL (150-450); RED BLOOD COUNT 4.16 10^6/uL (4.00-5.40); WHITE BLOOD COUNT 6.4 10^3/uL (4.0-10.0)
[2024-01-20 18:09] LABS: ETHYL ALCOHOL (ETHANOL) < 0.003 % (0.000-0.010)
[2024-01-20 18:10] LABS: ALBUMIN 3.6 G/DL (3.2-5.2); ALKALINE PHOSPHATASE 56 U/L (46-116); ALT/SGPT 18 U/L (7.0-40); AST/SGOT 17 U/L (<34); BILIRUBIN,DIRECT 0.1 MG/DL (<0.4); BILIRUBIN,TOTAL 0.4 MG/DL (0.3-1.2); BLOOD UREA NITROGEN 21 MG/DL (9-23); CARBON DIOXIDE LEVEL 24 MMOL/L (20-31); CHLORIDE LEVEL 109 MMOL/L (98-107); CREATININE FOR GFR 0.74 MG/DL (0.55-1.30); GLOMERULAR FILTRATION RATE > 60.0 (>58); GLUCOSE, FASTING 80 MG/DL (60-100); POTASSIUM SERUM 3.7 MMOL/L (3.5-5.1); SALICYLATE LEVEL < 3.0 MG/DL (<30); SODIUM LEVEL 142 MMOL/L (136-145); TOTAL PROTEIN 6.3 G/DL (5.7-8.2)
[2024-01-20] MEDS: NS 1,000 ML IV ONE (18:10)
[2024-01-20 18:12] LABS: THYROID STIMULATING HORMONE 1.747 uIU/ML (0.55-4.78)
[2024-01-20] MEDS: NALOXONE INJ 0.4MG/1ML VIAL IV PRN (18:22)
[2024-01-20 18:30] VITALS: BP 113/58; O2SAT 100
[2024-01-20 18:44] LABS: BARBITURATES URINE NEGATIVE (NEGATIVE); BENZODIAZEPINES URINE NEGATIVE (NEGATIVE); COCAINE METABOLITE URINE NEGATIVE (NEGATIVE); METHADONE URINE NEGATIVE (NEGATIVE)
[2024-01-20 18:45] LABS: CANNABINOIDS URINE NEGATIVE (NEGATIVE); OPIATES URINE NEGATIVE (NEGATIVE); PHENCYCLIDINE URINE NEGATIVE (NEGATIVE)
[2024-01-20 18:55] LABS: AMPHETAMINES LEVEL URINE POSITIVE (NEGATIVE)
[2024-01-20] MEDS ORDERED: MACR100C43 PO (19:22)
== END 2024-01-20 20:59 | disposition home or self-care (01) ==
LOC: M ED 16:42
DX: F15.129 Other stimulant abuse with intoxication, unspecified (principal); R31.9 Hematuria, unspecified; Z88.2 Allergy status to sulfonamides

== ENCOUNTER 2024-01-26 07:15 | Emergency (ER) | payer OTHER, SELFPAY ==
[~2024-01-26] VITALS: Ht 172.7 cm; Wt 64.4 kg
[~2024-01-26 07:15] MED LIST changes: +MACR100C43 PO
[2024-01-26 07:53] LABS: HEMATOCRIT 33.7 % (36.0-47.0); MEAN CORPUSCULAR HEMOGLOBIN 22.4 pg (27.0-33.0); MEAN CORPUSCULAR HGB CONC 29.7 g/dl (32.0-36.5); MEAN CORPUSCULAR VOLUME 75.4 fl (80.0-96.0); PLATELET COUNT, AUTOMATED 407 10^3/uL (150-450); RED BLOOD COUNT 4.47 10^6/uL (4.00-5.40); WHITE BLOOD COUNT 6.8 10^3/uL (4.0-10.0)
[2024-01-26 08:23] LABS: ETHYL ALCOHOL (ETHANOL) < 0.003 % (0.000-0.010)
[2024-01-26 08:25] LABS: ALBUMIN 3.6 G/DL (3.2-5.2); ALKALINE PHOSPHATASE 61 U/L (46-116); ALT/SGPT 22 U/L (7.0-40); AST/SGOT 18 U/L (<34); BILIRUBIN,DIRECT 0.1 MG/DL (<0.4); BILIRUBIN,TOTAL 0.4 MG/DL (0.3-1.2); BLOOD UREA NITROGEN 19 MG/DL (9-23); CALCIUM LEVEL 8.9 MG/DL (8.5-10.1); CARBON DIOXIDE LEVEL 24 MMOL/L (20-31); CHLORIDE LEVEL 108 MMOL/L (98-107); GLOMERULAR FILTRATION RATE > 60.0 (>58); GLUCOSE, FASTING 126 MG/DL (60-100); SALICYLATE LEVEL < 3.0 MG/DL (<30); SODIUM LEVEL 140 MMOL/L (136-145); TOTAL PROTEIN 6.5 G/DL (5.7-8.2)
[2024-01-26 08:36] LABS: HCG, SERUM QUALITATIVE NEGATIVE (NEGATIVE)
[2024-01-26 08:47] LABS: BARBITURATES URINE NEGATIVE (NEGATIVE); BENZODIAZEPINES URINE NEGATIVE (NEGATIVE); COCAINE METABOLITE URINE NEGATIVE (NEGATIVE); METHADONE URINE NEGATIVE (NEGATIVE); OPIATES URINE NEGATIVE (NEGATIVE); PHENCYCLIDINE URINE NEGATIVE (NEGATIVE)
[2024-01-26 08:51] LABS: AMPHETAMINES LEVEL URINE POSITIVE (NEGATIVE); CANNABINOIDS URINE POSITIVE (NEGATIVE); THYROID STIMULATING HORMONE 1.657 uIU/ML (0.55-4.78)
[2024-01-26 09:47] LABS: IRON (FE) 17 UG/DL (50-170); PERCENT SATURATION 4.3 % (13.2-45.0); TOTAL IRON BINDING CAPACITY 395 UG/DL (250-425)
[2024-01-26 09:50] LABS: FERRITIN 1.6 NG/ML (7.3-270.7); VITAMIN B12 LEVEL 341 PG/ML (211-911)
[2024-01-26] MEDS ORDERED: FERR325T3 PO (11:36)
[2024-01-26 12:08] VITALS: BP 121/74; TEMP 97.3; O2SAT 97
== END 2024-01-26 12:09 | disposition home or self-care (01) ==
LOC: M ED 07:15
DX: F15.188 Other stimulant abuse with other stimulant-induced disorder (principal); D50.9 Iron deficiency anemia, unspecified; J45.909 Unspecified asthma, uncomplicated; F10.10 Alcohol abuse, uncomplicated; F32.A Depression, unspecified; F17.200 Nicotine dependence, unspecified, uncomplicated; Z79.899 Other long term (current) drug therapy; Z88.2 Allergy status to sulfonamides; Z91.040 Latex allergy status